=== PATIENT | female | born 1990 | race Caucasian/White ===

== ENCOUNTER 2018-10-28 13:00 | Emergency (ER) | payer SELFPAY ==
[~2018-10-28] VITALS: Ht 157.5 cm; Wt 56.7 kg
[2018-10-28 13:07] VITALS: Ht 157.5 cm; Wt 56.7 kg
[2018-10-28 15:19] LABS: BASOPHIL % 0.3 % (0-2); PLATELET COUNT 165 x10^3mcL (130-400); RED CELL DISTRIBUTION WIDTH 12.3 % (11.5-14.5)
[2018-10-28 15:30] LABS: CALCIUM 9.2 mg/dL (8.5-10.1); CARBON DIOXIDE 29.6 mmol/L (21-32); CHLORIDE SERUM 106 mmol/L (98-107); CREATININE SERUM 0.6 mg/dL (0.6-1.0); GFR1 > 60 mL/min; GLUCOSE SERUM 92 mg/dL (74-106); SODIUM SERUM 142 mmol/L (136-145)
[2018-10-28 15:35] LABS: ALBUMIN 3.4 g/dL (3.4-5.0); ALKALINE PHOSPHATASE 83 U/L (46-116); ALT/SGPT 21 U/L (14-59); AST/SGOT 13 U/L (15-37); TOTAL PROTEIN, SERUM 6.8 g/dL (6.4-8.2)
[2018-10-28 18:01] VITALS: BP 106/43
== END 2018-10-28 18:16 | disposition home or self-care (01) ==
LOC: ED 13:00
PROVIDERS: Emergency Medicine
DX: K29.70 Gastritis, unspecified, without bleeding (principal); N80.9 Endometriosis, unspecified; J45.909 Unspecified asthma, uncomplicated; Z88.8 Allergy status to other drugs, medicaments and biological substances
CPT/HCPCS: C9113; J2270; J2405; J7030; Q0092

== ENCOUNTER 2019-01-18 03:17 | Emergency (ER) | payer MEDICAID ==
[~2019-01-18] VITALS: Ht 157.5 cm; Wt 56.4 kg
[2019-01-18 03:23] VITALS: Ht 157.5 cm; Wt 56.4 kg
[2019-01-18 09:56] VITALS: BP 110/76
== END 2019-01-18 09:56 | disposition home or self-care (01) ==
LOC: ED 03:17
DX: E28.2 Polycystic ovarian syndrome (principal); J45.909 Unspecified asthma, uncomplicated; Z88.8 Allergy status to other drugs, medicaments and biological substances; Z91.040 Latex allergy status; Z91.018 Allergy to other foods
CPT/HCPCS: J1885; J2270; J2405; J3490

== ENCOUNTER 2019-01-31 21:20 | Emergency (ER) | payer MEDICAID ==
[~2019-01-31] VITALS: Ht 157.5 cm; Wt 55.3 kg
[2019-01-31 21:27] VITALS: Ht 157.5 cm; Wt 55.3 kg
[2019-01-31 21:56] LABS: BASOPHIL % 0.5 % (0-2); PLATELET COUNT 191 x10^3mcL (130-400)
[2019-01-31 22:09] LABS: CALCIUM 9.8 mg/dL (8.5-10.1); CARBON DIOXIDE 30.9 mmol/L (21-32); CHLORIDE SERUM 107 mmol/L (98-107); CREATININE SERUM 0.6 mg/dL (0.6-1.0); GFR1 > 60 mL/min; GLUCOSE SERUM 107 mg/dL (74-106); POTASSIUM SERUM 4.4 mmol/L (3.5-5.1); SODIUM SERUM 144 mmol/L (136-145)
[2019-01-31 23:22] VITALS: BP 107/53
== END 2019-01-31 23:22 | disposition home or self-care (01) ==
LOC: ED 21:20
PROVIDERS: Emergency Medicine
DX: R10.2 Pelvic and perineal pain (principal); J45.909 Unspecified asthma, uncomplicated; Z87.42 Personal history of other diseases of the female genital tract; Z88.8 Allergy status to other drugs, medicaments and biological substances; Z91.018 Allergy to other foods; Z91.040 Latex allergy status
CPT/HCPCS: 36415; J1885; Q0162

== ENCOUNTER 2019-04-07 13:03 | Emergency (ER) | payer SELFPAY ==
[~2019-04-07] VITALS: Ht 160 cm; Wt 53.5 kg
[2019-04-07 13:11] VITALS: Ht 160 cm; Wt 53.5 kg
[2019-04-07 14:18] LABS: BASOPHIL % 0.4 % (0-2); PLATELET COUNT 172 x10^3mcL (130-400)
[2019-04-07 15:30] VITALS: BP 101/53
== END 2019-04-07 15:48 | disposition home or self-care (01) ==
LOC: ED 13:03
PROVIDERS: Emergency Medicine
DX: N80.9 Endometriosis, unspecified (principal); N94.10 Unspecified dyspareunia; J45.909 Unspecified asthma, uncomplicated; E28.2 Polycystic ovarian syndrome; Z91.040 Latex allergy status; Z88.8 Allergy status to other drugs, medicaments and biological substances; Z91.018 Allergy to other foods
CPT/HCPCS: 36415; J1885

== ENCOUNTER 2019-07-29 14:44 | Emergency (ER) | payer MEDICAID | END 2019-07-29 15:50 | disposition left against medical advice (07) | LOC: ED 14:44 | DX: Z53.21 Procedure and treatment not carried out due to patient leaving prior to being seen by health care provider (principal) ==

== ENCOUNTER 2019-07-30 19:44 | Emergency (ER) | payer SELFPAY ==
[~2019-07-30] VITALS: Ht 157.5 cm; Wt 49.7 kg
[2019-07-30 21:04] LABS: BASOPHIL % 0.9 % (0-2); PLATELET COUNT 190 x10^3mcL (130-400); RED CELL DISTRIBUTION WIDTH 13.1 % (11.5-14.5)
[2019-07-30 21:25] LABS: microscopic required? NO
[2019-07-30 21:40] LABS: UA SPECIFIC GRAVITY 1.025 (1.005-1.035); urine erythrocyte NEGATIVE (NEGATIVE)
[2019-07-31 01:40] VITALS: BP 119/69
== END 2019-07-31 01:41 | disposition home or self-care (01) ==
LOC: ED 19:44
PROVIDERS: Emergency Medicine
DX: O20.0 Threatened abortion (principal); O99.511 Diseases of the respiratory system complicating pregnancy, first trimester; Z3A.01 Less than 8 weeks gestation of pregnancy; Z91.040 Latex allergy status; Z91.018 Allergy to other foods; Z88.8 Allergy status to other drugs, medicaments and biological substances
CPT/HCPCS: 36415

== ENCOUNTER 2019-10-12 23:51 | Emergency (ER) | payer OTHER ==
[~2019-10-12] VITALS: Ht 157.5 cm; Wt 52.2 kg
[2019-10-12 23:58] VITALS: BP 108/44; Ht 157.5 cm; Wt 52.2 kg
== END 2019-10-13 00:38 | disposition home or self-care (01) ==
LOC: ED 23:51
DX: O26.892 Other specified pregnancy related conditions, second trimester (principal); R10.9 Unspecified abdominal pain; O9A.212 Injury, poisoning and certain other consequences of external causes complicating pregnancy, second trimester; J45.909 Unspecified asthma, uncomplicated; E28.2 Polycystic ovarian syndrome; Z88.8 Allergy status to other drugs, medicaments and biological substances; Z91.040 Latex allergy status; Z91.018 Allergy to other foods; Z3A.15 15 weeks gestation of pregnancy